=== PATIENT | male | born 1960 | race Caucasian/White ===

== ENCOUNTER 2024-12-21 07:04 | Day surgery (SDC) | payer OTHER ==
[~2024-12-21] VITALS: Ht 175.3 cm; Wt 106.1 kg
[2024-12-21] MEDS ORDERED: ESCI10 (07:30)
[2024-12-21] MEDS ORDERED: EZET10 (07:30)
[2024-12-21] MEDS ORDERED: OMEP20ER (07:30)
[2024-12-21] MEDS ORDERED: CLOP75 (07:30)
[2024-12-21] MEDS ORDERED: PRAV20 (07:31)
[2024-12-21] MEDS ORDERED: Lactated Ringer's 1,000 ML IV ONE ×2 (07:57→08:25)
[2024-12-21] MEDS ORDERED: propofoL 50 ML IV ONE (08:14)
[2024-12-21] MEDS ORDERED: Benzocaine Oral Spray 0.5ML UD ONE (08:16)
[2024-12-21 09:39] VITALS: BP 103/64
== END 2024-12-21 09:35 | disposition home or self-care (01) ==
LOC: ORSCSDS 07:04
PROVIDERS: Specialist
PROC: 0DB68ZX Excision of Stomach, Via Natural or Artificial Opening Endoscopic, Diagnostic (ICD-10-PCS; principal; 2024-12-21 08:30)
PROC: 0DB58ZX Excision of Esophagus, Via Natural or Artificial Opening Endoscopic, Diagnostic (ICD-10-PCS; principal; 2024-12-21 08:30)
PROC: 0DBH8ZX Excision of Cecum, Via Natural or Artificial Opening Endoscopic, Diagnostic (ICD-10-PCS; principal; 2024-12-21 08:30)
PROC: 0DBL8ZX Excision of Transverse Colon, Via Natural or Artificial Opening Endoscopic, Diagnostic (ICD-10-PCS; principal; 2024-12-21 08:30)
DX: Z12.11 Encounter for screening for malignant neoplasm of colon (principal); K21.9 Gastro-esophageal reflux disease without esophagitis; D12.0 Benign neoplasm of cecum; D12.3 Benign neoplasm of transverse colon; K64.8 Other hemorrhoids; K57.30 Diverticulosis of large intestine without perforation or abscess without bleeding; E78.5 Hyperlipidemia, unspecified; Z86.73 Personal history of transient ischemic attack (TIA), and cerebral infarction without residual deficits; I10 Essential (primary) hypertension; G47.33 Obstructive sleep apnea (adult) (pediatric); G47.30 Sleep apnea, unspecified; E66.9 Obesity, unspecified; Z68.34 Body mass index [BMI] 34.0-34.9, adult; Z79.02 Long term (current) use of antithrombotics/antiplatelets; Z79.899 Other long term (current) drug therapy
CPT/HCPCS: 88305; 88342; A9270; J2704; J7120